=== PATIENT | male | born 1995 | race Two or more races ===

== ENCOUNTER 2021-01-05 18:31 | Emergency (ER) | payer OTHER ==
[~2021-01-05] VITALS: Ht 172.7 cm; Wt 61.2 kg
[2021-01-05] MEDS ORDERED: IBU800 MG PO (19:39)
== END 2021-01-05 20:16 | disposition home or self-care (01) ==
LOC: ER 18:31
DX: S50.311A Abrasion of right elbow, initial encounter (principal); S91.312A Laceration without foreign body, left foot, initial encounter; S62.306A Unspecified fracture of fifth metacarpal bone, right hand, initial encounter for closed fracture; V19.3XXA Pedal cyclist (driver) (passenger) injured in unspecified nontraffic accident, initial encounter; Y93.89 Activity, other specified; Y92.413 State road as the place of occurrence of the external cause